=== PATIENT | male | born 1955 | race Caucasian/White ===

== ENCOUNTER 2017-11-16 | Emergency (ER) | payer OTHER ==
--- NOTE | 2017-11-16 11:32 | ER ---
Nurse's Notes [facility] Name: Christian Cotton Age: 62 yrs Sex: Male : 1955 Arrival Date: 11/16/2017 Time: 11:10 Bed 11 Private MD: Diagnosis: Dental caries Presentation: 11/16 11:13 Presenting complaint: Patient states: mouth pain, top left rear. started yesterday. tl3 Transition of care: patient was not received from another setting of care. Onset of symptoms was November 15, 2017. 11:13 Method Of Arrival: Ambulatory tl3 11:13 Acuity: EDUAR 4 tl3 11:20 Care prior to arrival: None. tw2 Triage Assessment: 11:16 General: Appears in no apparent distress. distressed, comfortable, uncomfortable, tl3 Behavior is calm, cooperative, appropriate for age. Pain: Pain currently is 3 out of 10 on a pain scale. Historical: - Allergies: 11:16 No Known Allergies; tl3 - Home Meds: 11:20 oxycodone-acetaminophen 10-325 mg Oral tab 1 tab every 8 hours [Active]; Dexilant 60 mg tl3 oral CpDB 1 cap every other day [Active]; tizanidine oral 60 mg oral 1 cap every other day [Active]; Crestor 10 mg oral tab [Active]; - PSHx: 11:16 right foot; abdominal stents; Appendectomy; tl3 - Immunization history:: Adult Immunizations up to date. - Social history:: Smoking status: Patient/guardian denies using tobacco, the patient reports quitting approximately 3 years ago, Patient/guardian denies using alcohol. Screenin:25 Abuse screen: Denies threats or abuse. Nutritional screening: No deficits noted. tw2 Tuberculosis screening: No symptoms or risk factors identified. Fall Risk None identified. Assessment: 11:20 General: Appears in no apparent distress. well groomed, Behavior is calm, cooperative, tw2 appropriate for age. 11:47 Pain: Complains of pain in lower left second molar (#18) and upper left second molar tw2 (#15) and upper left first molar (#14) and upper left second bicuspid (#13) and upper left second molar. Neuro: Level of Consciousness is awake, alert, obeys commands, Oriented to person, place, time, situation. Cardiovascular: Denies chest pain, shortness of breath, Capillary refill < 3 seconds Patient's skin is warm and dry. Respiratory: Airway is patent Respiratory effort is even, unlabored, Respiratory pattern is regular, symmetrical. EENT: Reports pain in lower left second molar (#18) and upper left second molar (#15) and upper left first molar (#14) and upper left second bicuspid (#13) and upper left second molar and upper left first molar. Derm: Skin is intact, is healthy with good turgor. 11:48 Reassessment: Patient appears in no apparent distress at this time. No changes from tw2 previously documented assessment. Patient and/or family updated on plan of care and expected duration. Pain level reassessed. Patient is alert, oriented x 3, equal unlabored respirations, skin warm/dry/pink. Vital Signs: 11:20 BP 134 / 101; Pulse 75; Resp 16; Temp 97.2(O); Pulse Ox 97% ; Weight 108.86 kg; Height tl3 5 ft. 10 in. (177.80 cm); 11:20 Body Mass Index 34.44 (108.86 kg, 177.80 cm) tl3 ED Course: 11:10 Patient arrived in ED. rg4 11:14 Arm band placed on. tw2 11:15 Triage completed. tl3 11:21 Bed in low position. Call light in reach. tw2 11:22 Prateek Ham NP is PHCP. pm1 11:22 Kalee Mckeon MD is Attending Physician. pm1 11:45 No provider procedures requiring assistance completed. Patient did not have IV access tw2 during this emergency room visit. 11:47 Mónica Camp RN is Primary Nurse. tw2 Administered Medications: No medications were administered Outcome: 11:31 Discharge ordered by . pm1 11:47 Discharged to home ambulatory. tw2 11:47 Condition: stable 11:47 Discharge instructions given to patient, Instructed on discharge instructions, follow up and referral plans. medication usage, Demonstrated understanding of instructions, follow-up care, medications, Prescriptions given X 1. 11:48 Patient left the ED. tw2 Signatures: Prateek Ham NP PLAY[employer]ITOR pm1 Mónica Camp RN RN tw2 Rosmery Oleary rg4 Inez Martínez RN RN tl3 Corrections: (The following items were deleted from the chart) 11:48 11:47 General: Appears in no apparent distress. well groomed, Behavior is calm, tw2 cooperative, appropriate for age, tw2
--- NOTE | 2017-11-16 11:32 | EDPHYS ---
Physician Documentation [facility] Name: Christian Cotton Age: 62 yrs Sex: Male : 1955 Arrival Date: 11/16/2017 Time: 11:10 Bed 11 Private MD: ED Physician Kalee Mckeon HPI: 11/16 11:29 This 62 yrs old Male presents to ER via Ambulatory with complaints of pm1 Toothache. 11:29 The patient presents with pain. The problem is located in the upper left first molar pm1 and upper left second molar. Onset: The symptoms/episode began/occurred 3 day(s) ago. Modifying factors: The symptoms are alleviated by nothing, the symptoms are aggravated by chewing. Associated signs and symptoms: Pertinent negatives: chills, dysphagia, fever, inability to eat, vomiting. The patient has experienced similar episodes in the past, multiple times. The patient has not recently seen a physician. Patient requesting Augmentin for his dental pain. Patient has had chronic dental caries and was last given antibiotics for the same dental pain in August 2017. Patient currently taking oxycodone for his chronic back pain. Historical: - Allergies: 11:16 No Known Allergies; tl3 - Home Meds: 11:20 oxycodone-acetaminophen 10-325 mg Oral tab 1 tab every 8 hours [Active]; Dexilant 60 mg tl3 oral CpDB 1 cap every other day [Active]; tizanidine oral 60 mg oral 1 cap every other day [Active]; Crestor 10 mg oral tab [Active]; - PSHx: 11:16 right foot; abdominal stents; Appendectomy; tl3 - Immunization history:: Adult Immunizations up to date. - Social history:: Smoking status: Patient/guardian denies using tobacco, the patient reports quitting approximately 3 years ago, Patient/guardian denies using alcohol. ROS: 11:29 Constitutional: Negative for fever, chills, and weight loss, Eyes: Negative for injury, pm1 pain, redness, and discharge. 11:29 Neck: Negative for injury, pain, and swelling, Cardiovascular: Negative for chest pain, palpitations, and edema, Respiratory: Negative for shortness of breath, cough, wheezing, and pleuritic chest pain, Abdomen/GI: Negative for abdominal pain, nausea, vomiting, diarrhea, and constipation, Back: Negative for injury and pain, MS/Extremity: Negative for injury and deformity, Skin: Negative for injury, rash, and discoloration, Neuro: Negative for headache, weakness, numbness, tingling, and seizure. 11:29 ENT: Positive for dental pain, Negative for ear pain, sore throat, difficulty swallowing, difficulty handling secretions, hoarseness. Exam: 11:29 Constitutional: This is a well developed, well nourished patient who is awake, alert, pm1 and in no acute distress. Head/Face: Normocephalic, atraumatic. Eyes: Pupils equal round and reactive to light, extra-ocular motions intact. Lids and lashes normal. Conjunctiva and sclera are non-icteric and not injected. Cornea within normal limits. Periorbital areas with no swelling, redness, or edema. 11:29 Neck: Trachea midline, no thyromegaly or masses palpated, and no cervical lymphadenopathy. Supple, full range of motion without nuchal rigidity, or vertebral point tenderness. No Meningismus. Chest/axilla: Normal chest wall appearance and motion. Nontender with no deformity. No lesions are appreciated. Cardiovascular: Regular rate and rhythm with a normal S1 and S2. No gallops, murmurs, or rubs. Normal PMI, no JVD. No pulse deficits. Respiratory: Lungs have equal breath sounds bilaterally, clear to auscultation and percussion. No rales, rhonchi or wheezes noted. No increased work of breathing, no retractions or nasal flaring. Back: No spinal tenderness. No costovertebral tenderness. Full range of motion. Skin: Warm, dry with normal turgor. Normal color with no rashes, no lesions, and no evidence of cellulitis. 11:29 ENT: External ear(s): are unremarkable, Ear canal(s): are normal, TM's: are normal, Nose: is normal, Mouth: Lips: normal, Oral mucosa: normal, Gums: normal with healthy appearance, Tongue: is normal, abscess, is not appreciated, drooling, is not appreciated, No trismus. Floor of mouth soft, Dental exam: dental caries, specifically in the upper left second bicuspid (#13), upper left first molar (#14), upper left second molar (#15) and lower left second molar (#18). Vital Signs: 11:20 BP 134 / 101; Pulse 75; Resp 16; Temp 97.2(O); Pulse Ox 97% ; Weight 108.86 kg; Height tl3 5 ft. 10 in. (177.80 cm); 11:20 Body Mass Index 34.44 (108.86 kg, 177.80 cm) tl3 MDM: 11:22 Patient medically screened. pm1 11:29 Data reviewed: vital signs. Data interpreted: Pulse oximetry: on room air is 97 %. pm1 Interpretation: normal. Counseling: I had a detailed discussion with the patient and/or guardian regarding: the historical points, exam findings, and any diagnostic results supporting the discharge/admit diagnosis, the need for outpatient follow up, for definitive care, a dentist, to return to the emergency department if symptoms worsen or persist or if there are any questions or concerns that arise at home. 11:29 ED course: patient already has pain medications, oxycodone, for his chronic back. pm1 11:29 Special discussion: I have referred the patient to see his PCP for further evaluation pm1 of high blood pressure. Administered Medications: No medications were administered Disposition: 11/17 07:15 Co-signature as Attending Physician, Kalee Mckeon MD. ma2 Disposition: 18 11:31 Discharged to Home. Impression: Dental caries. - Condition is Stable. - Discharge Instructions: Dental Pain. - Prescriptions for Augmentin 875- 125 mg Oral Tablet - take 1 tablet by ORAL route every 12 hours for 10 days; 20 tablet. - Medication Reconciliation Form, Thank You Letter, Antibiotic Education, Prescription Opioid Use form. - Follow up: Emergency Department; When: As needed; Reason: Worsening of condition. Follow up: Private Physician; When: 2 - 3 days; Reason: Recheck today's complaints, Continuance of care, Re-evaluation by your physician. - Problem is new. - Symptoms have improved. Signatures: Prateek Ham, LISSETH BEAN VINER pm1 Mónica Camp, RN RN tw2 Kalee Mckeon MD MD ma2 Inez Martínez RN RN tl3
== END 2017-11-16 11:48 | disposition home or self-care (01) ==
CPT/HCPCS: 99282